=== PATIENT | female | born 1980 | race Caucasian/White ===

== ENCOUNTER 2017-09-13 07:10 | Day surgery (SDC) | payer OTHER ==
--- NOTE | 2017-09-09 15:18 | RAD REPORT ---
EXAM DESCRIPTION: RAD - Chest Pa And Lat (2 Views) - 09/09/2017 3:09 pm CLINICAL HISTORY: Preop chest, soft tissue mass removal COMPARISON: None. TECHNIQUE: PA and lateral views of the chest were obtained. FINDINGS: The lungs are clear. Heart size is normal and central vasculature is within normal limit s. No pleural effusion or pneumothorax seen. No acute bony finding noted. No aortic abnormality. IMPRESSION: No acute cardiopulmonary process.
[2017-09-09 15:57] LABS: Absolute Lymphocytes (CBC) 2.2 K/uL (0.7-4.9); Absolute Monocytes 0.6 K/uL (0.1-1.3); Absolute Neutrophil 5.6 K/uL (1.8-8.0); Basophils % 0.7 % (0-1.3); Eosinophils % 2.5 % (0-4.4); Hematocrit 39.1 % (36.0-45.0); Lymphocytes % 25.1 % (15.3-44.8); MCH 25.4 pg (27.0-35.0); MCV 78.6 fL (80-100); MPV 8.8 fL (7.6-11.3); Monocytes % 7.2 % (3.3-12.3); RBC Red Blood Cell Count 4.98 M/uL (3.86-4.86)
--- NOTE | 2017-09-10 06:46 | EKG ---
Test Date: 2017-09-09 Test Time: 14:59:59 Assistant Film Editor: MILDRED MEASUREMENT RESULTS: Intervals: Rate: 75 OK: 136 QRSD: 76 QT: 388 QTc: 433 [place]: P: 71 OK: 136 QRS: 76 T: 62 INTERPRETIVE STATEMENTS: Normal sinus rhythm Normal ECG Compared to ECG 06/26/2011 09:26:14 No significant changes Electronically Signed On 09-10-17 06:45:39 CDT by Keenan Magaña
[2017-09-13] MEDS ORDERED: Ringers Lactate 1,000 ML IV ONE (07:25)
[2017-09-13] MEDS ORDERED: PROPOFOL 200 MG/20 ML VIAL IV ONE ×2 (08:18→11:06)
[2017-09-13] MEDS ORDERED: LIDOCAINE 2% MPF 5 ML VIAL ONE ×2 (08:18→11:06)
[2017-09-13] MEDS ORDERED: MIDAZOLAM HCL 2 MG/2 ML INJ ONE ×2 (08:18→11:06)
[2017-09-13] MEDS ORDERED: FENTANYL CITR 100 MCG/2 ML ONE ×2 (08:18→11:06)
[2017-09-13] MEDS ORDERED: CEFAZOLIN/SWI 1gm 1 GM/10 ML SYR ONE (08:41)
[2017-09-13 09:30] VITALS: BP 98/52; TEMP 97.1; O2SAT 98
--- NOTE | 2017-09-13 09:34 | P.BOP ---
Preoperative diagnosis: ulcerated right hand mass Postoperative diagnosis: early squamous cell carcinoma Primary procedure: Wide excision with frozen section of sq cell carcinoma right hand 3x3cm Estimated blood loss: <5cc Specimen: ulcerated mass Findings: Kerathoacanthoma with early sq cell ca with clear margins by Dr Jones Anesthesia: General Complications: None Transferred to: Recovery Room Condition: Good
[2017-09-13] MEDS ORDERED: ONDANSETRON 4 MG/2 ML VIAL ONE (11:06)
[2017-09-13] MEDS ORDERED: BUPIVACA 0.25%/EPI 0.0005%/PF 30 ML VIAL ONE (11:06)
--- NOTE | 2017-09-13 21:38 | OP ---
Date of Procedure: 09/13/2017 Surgeon: Dougie Bunch MD Preoperative Diagnosis: Ulcerated right hand mass. Postoperative Diagnosis: Early squamous cell carcinoma. Procedure: Wide excision of frozen section of squamous cell carcinoma, right hand 3 x 3 cm. Estimated Blood Loss: Less than 5 cc. Specimen: Ulcerative mass. Findings: Keratoacanthoma with early squamous cell carcinoma with clear margins by Dr. Jones. Anesthesia: MAC plus local. Indications: This is a case of a female who comes to us with ulcerative mass, raised edges scaly. S he thought it could be a foreign body. She took some medication, not improve, she comes to us for ex cision sent by the primary doctor. The patient understands the differential diagnosis of cancer on t he skin. She understood the need for wide resection with frozen section with benefits, alternatives, and risks which include not limited to infection, bleeding, damage to adjacent structures, anesthesi a complication, recurrence, DC, and even . She also understands this may not relieve any sympto ms, she might need more than one surgical intervention. She understood, signed a consent. Description Of Procedure: The patient was brought to the operating room, placed in supine position. Anesthesia was done without complication. Right hand was prepped and draped in a sterile fashion. The area was marked by me and the patient in the holding room. A wedge incision was made in the skin all the way down to fatty tissue with negative margins. Sent to the pathologist, marked for orienta tion, found to have a keratin changes with early squamous cell carcinoma with margins free of tumor p er Dr. Jones. At that time, we proceeded to irrigate the area, obtained hemostasis, then we proceed ed to close the area with a [id number] fashion, a 3-0 nylon multiple. The patient tolerated the procedure well. The patient was sent to recovery in stable condition. DISCHARGE SUMMARY Diagnosis: Squamous cell carcinoma, right hand. Procedure: Wide excision of frozen section of squamous cell carcinoma. Disposition: Home. Activity: As tolerated. No heavy lifting. Followup: Follow up in my office in 1 week. Call for appointment at [phone]. Keep the area dry fo r 48 hours, then may shower. Keep intact and try not to put this in the water, just running water. CARYN/IKER Voice ID: [id number] Report ID: [id number]
== END 2017-09-13 10:11 | disposition home or self-care (01) ==
LOC: OR 07:10
PROVIDERS: ATTEND Surgery
PROC: 0HBFXZZ Excision of Right Hand Skin, External Approach (ICD-10-PCS; principal; 2017-09-13 08:30)
DX: C44.622 Squamous cell carcinoma of skin of right upper limb, including shoulder (principal); F17.210 Nicotine dependence, cigarettes, uncomplicated; Z83.3 Family history of diabetes mellitus; Z82.5 Family history of asthma and other chronic lower respiratory diseases
CPT/HCPCS: 36415; 71046; 80048; 81025; 85025; 88305; 88331; 88332; 93005; J0690; J2250; J2405; J3010